=== PATIENT | female | born 1970 | race Caucasian/White ===

== ENCOUNTER 2022-10-09 15:00 | Emergency (ER) | payer OTHER ==
[~2022-10-09] VITALS: Ht 167.6 cm; Wt 95.3 kg
[2022-10-09 15:04] VITALS: BP_SYST 148
--- NOTE | 2022-10-09 15:10 | NUR ---
Patient to ER bed H1 to gown for evaluation. Side rails up.
[2022-10-09] MEDS ORDERED: KETOROLAC TROMETHAMINE 60 MG/2 ML VIAL IM ONE (15:15)
--- NOTE | 2022-10-09 15:20 | NUR ---
ER at bedside examining patient.
--- NOTE | 2022-10-09 15:30 | NUR ---
PT PRESENTS TO ED S/P MECH FALL NO SYNCOPE.PT RE[PORTS PAIN TO L KNEE AND R HAND.
[2022-10-09] MEDS ORDERED: IBUP-1971 PO (16:32)
[2022-10-09] MEDS ORDERED: DICL20GE TP (16:32)
--- NOTE | 2022-10-09 17:00 | NUR ---
Patient given written and verbal discharge instructions and verbalizes understanding. ER MD discussed with patient the results and treatment provided. Patient in stable condition. ID arm band removed. Rx of VOLTAREN,MOTRIN given. Patient educated on pain management and to follow up with PMD. Pain Scale 0. Opportunity for questions provided and answered. Medication side effect fact sheet provided.
--- NOTE | 2022-10-09 17:10 | NUR ---
Note shilpa in ED - 10/09/22 at 1944 by MICHI Patient to ER bed H1 to gown for evaluation. Side rails up.
== END 2022-10-09 17:00 | disposition home or self-care (01) ==
LOC: SED 15:00
DX: S80.02XA Contusion of left knee, initial encounter (principal); S60.221A Contusion of right hand, initial encounter; Z79.899 Other long term (current) drug therapy; W01.0XXA Fall on same level from slipping, tripping and stumbling without subsequent striking against object, initial encounter; Y93.89 Activity, other specified; Y92.89 Other specified places as the place of occurrence of the external cause; Y99.8 Other external cause status
CPT/HCPCS: 99284; 73130; 73564; 96372; J1885